=== PATIENT | male | born 1940 | race Caucasian/White ===

== ENCOUNTER → 2017-09-05 | Outpatient (CLI) | payer MEDICARE ==
[~2017-09-05] MED LIST: ALLO300T PO; ASPI-496 PO; AZIT500T5 PO; BUDE10.22 INH; CEFD300C37 PO; CHOL2000 PO; CLOT30CR TP; CYAN100072 PO; CYCL-259 PO; DIGO250T PO; DOXA4TAB3 PO; FENO160T PO; FLAX100013 PO; GUAI200T3 PO; HALO15CR3 TP; HYDR-3237 PO; IPRA3AMP INH; LOSA1TAB22 PO; LOVA20TA2 PO; METF10002 PO; METO50TA82 PO; OMNIPAQUE 350 MG/ML, 150 ML BOTTLE ONE; OXYC-302 PO; PLAN450T PO; PRED10TA PO; TIOT18CA INH; WARF-36 PO; WARF2TAB PO; [UNRECOGNIZED DRUG - CODE] TP
== END | disposition home or self-care (01) ==
LOC: CFH 12:52
PROVIDERS: ATTEND Physician Assistant
DX: N20.0 Calculus of kidney (principal); N28.1 Cyst of kidney, acquired; K80.11 Calculus of gallbladder with chronic cholecystitis with obstruction; I71.4 Abdominal aortic aneurysm, without rupture; I70.0 Atherosclerosis of aorta; J18.9 Pneumonia, unspecified organism; I31.3 Pericardial effusion (noninflammatory); I51.7 Cardiomegaly
CPT/HCPCS: 74178; 82565; Q9967

== ENCOUNTER → 2019-06-18 | Outpatient (CLI) | payer MEDICARE ==
[~2019-06-18] MED LIST changes: +AZIT500T10 PO; -AZIT500T5 PO; -DIGO250T PO; +DIGO250T3 PO; -GUAI200T3 PO; +GUAI200T37 PO; -IPRA3AMP INH; +IPRA3AMP30 INH; -OMNIPAQUE 350 MG/ML, 150 ML BOTTLE ONE; +REGADENOSON 0.4 MG/5 ML SYRINGE ONE
== END | disposition home or self-care (01) ==
LOC: CFH 08:32
PROVIDERS: ATTEND Internal Medicine Cardiovascular Disease
DX: I25.89 Other forms of chronic ischemic heart disease (principal)
CPT/HCPCS: 78452; 93017; A9502; J2785

== ENCOUNTER 2019-10-03 10:36 | Outpatient (CLI) | payer MEDICARE ==
[~2019-10-03 10:36] MED LIST changes: -REGADENOSON 0.4 MG/5 ML SYRINGE ONE
== END 2019-10-03 23:59 | disposition home or self-care (01) ==
LOC: CFH 10:36
PROVIDERS: ATTEND Internal Medicine Cardiovascular Disease
DX: I08.3 Combined rheumatic disorders of mitral, aortic and tricuspid valves (principal); I27.20 Pulmonary hypertension, unspecified; I10 Essential (primary) hypertension; I25.2 Old myocardial infarction; E78.5 Hyperlipidemia, unspecified; I25.10 Atherosclerotic heart disease of native coronary artery without angina pectoris; E11.9 Type 2 diabetes mellitus without complications; Z85.038 Personal history of other malignant neoplasm of large intestine
CPT/HCPCS: 93306

== ENCOUNTER → 2019-12-20 | Outpatient (CLI) | payer MEDICARE | END | disposition home or self-care (01) | LOC: CFH 14:09 | PROVIDERS: ATTEND Internal Medicine Cardiovascular Disease | DX: I08.8 Other rheumatic multiple valve diseases (principal); I25.5 Ischemic cardiomyopathy; I27.20 Pulmonary hypertension, unspecified; E78.5 Hyperlipidemia, unspecified; I25.10 Atherosclerotic heart disease of native coronary artery without angina pectoris; I25.2 Old myocardial infarction; I11.9 Hypertensive heart disease without heart failure | CPT/HCPCS: 93306 ==

== ENCOUNTER 2020-07-02 13:29 | Inpatient (IN) | payer MEDICARE ==
[~2020-07-02] VITALS: Ht 177.8 cm; Wt 104.0 kg
[~2020-07-02 13:29] MED LIST changes: -CYCL-259 PO; +CYCL10TA2 PO; -OXYC-302 PO; +OXYC1TAB14 PO
--- NOTE | 2020-07-02 14:04 | NUR ---
PY C/O BLOODY STOOLS (BLACK,TARRY) THAT HAVE BEEN OCCURRING FOR A FEW WEEKS. PT ALSO HAS CRAMPING IN ALL ABD QUADRANTS. PT DENIES N/V. PT STATES HE IS ALSO BEEN FEELING SOB INTERMITTENTLY FOR A FEW MONTHS AND HAS NOT SEEN A DR FOR IT. PT STATES SOB WORSENS WITH EXERTION.
[2020-07-02] MEDS ORDERED: SODIUM CHLORIDE FLUSH 10ML SYR IVF ONE (14:30)
[2020-07-02] MEDS ORDERED: PANTOPRAZOLE 80 MG in SODIUM CHLORIDE 0.9% 50 ML IVPB ONE (14:30)
[2020-07-02 14:59] LABS: BASOPHILS % (AUTO) 1 % (0-1); EOSINOPHILS % (AUTO) 1 % (1-7); LYMPHOCYTES % (AUTO) 13 % (22-44); MEAN CORPUSCULAR HEMOGLOBIN 28.4 pg (27.5-34.5); MEAN CORPUSCULAR HGB CONC 32.4 g/dL (33.2-36.2); MEAN PLATELET VOLUME 8.8 fL (7.4-10.4); MONOCYTES % (AUTO) 12 % (2-9); NEUTROPHILS % (AUTO) 74 % (42-75); PLATELET COUNT 200 x10^3/uL (130-400); RED BLOOD COUNT 3.84 x10^6/uL (4.38-5.82)
[2020-07-02] MEDS: PANTOPRAZOLE 80 MG in SODIUM CHLORIDE 0.9% 100 ML IV SCH ×2 (15:03→17:37)
[2020-07-02 15:08] LABS: ALBUMIN 3.6 g/dL (3.4-5.0); ANION GAP 9 mmol/L (5-15); CHLORIDE 104 mmol/L (98-107); CREATININE 1.98 mg/dL (0.7-1.3)
[2020-07-02 15:11] LABS: INTERNATIONAL NORMALIZED RATIO 5.18 (0.93-1.1)
[2020-07-02 15:13] LABS: PROTHROMBIN TIME 53.7 Seconds (9.6-11.5)
[2020-07-02 15:15] LABS: MD NO
[2020-07-02] MEDS ORDERED: SODIUM CHLORIDE FLUSH 10ML SYR IVF PRN (16:00)
[2020-07-02] MEDS ORDERED: hydrALAzine 20 MG/ML, 1ML IVPush PRN (17:00)
[2020-07-02] MEDS ORDERED: ALBUTEROL/IPRATROPIUM 2.5MG/0.5MG, 3 ML NEB PRN (17:00)
[2020-07-02] MEDS ORDERED: DOCUSATE 100 MG CAPSULE PO PRN (17:00)
[2020-07-02] MEDS ORDERED: OXYcodone/APAP 5/325MG TABLET PO PRN (17:00)
[2020-07-02] MEDS ORDERED: ENALAPRILAT 1.25 MG/ML, 2ML IVPush PRN (17:00)
[2020-07-02] MEDS ORDERED: DEXTROSE 4 GM TAB.CHEW PO PRN (17:30)
[2020-07-02] MEDS ORDERED: GLUCAGON 1 MG IM PRN (17:30)
[2020-07-02] MEDS ORDERED: DEXTROSE 50%, 50ML SYRINGE IVPush PRN (17:30)
[2020-07-02] MEDS: SODIUM CHLORIDE 0.9% 1,000 ML IV SCH (17:37)
[2020-07-02 17:53] VITALS: BP 149/67
[2020-07-02 18:52] VITALS: BP 133/80
[2020-07-02] MEDS ORDERED: METOPROLOL 1 MG/ML, 5ML IVPush PRN (19:00)
[2020-07-02] MEDS: METOPROLOL TARTRATE 50 MG TAB PO SCH (20:16)
[2020-07-02] MEDS: ACETAMINOPHEN 325 MG TABLET PO PRN (20:16)
[2020-07-02] MEDS: DOXAZOSIN 2MG TABLET PO SCH (20:16)
[2020-07-02] MEDS: CYCLOBENZAPRINE 10 MG TABLET PO SCH (20:16)
[2020-07-02] MEDS: LOVASTATIN 20 MG TABLET PO SCH (20:16)
[2020-07-02] MEDS: SODIUM CHLORIDE FLUSH 10ML SYR IVF SCH (20:17)
[2020-07-02] MEDS: [UNRECOGNIZED DRUG - REMARK] MC SCH (20:17)
[2020-07-02 20:20] VITALS: BP 117/80
[2020-07-02] MEDS ORDERED: TEMPLATE NON-FORMULARY MED. (Metformin Hcl** 1,000 MG) PO SCH (21:00)
[2020-07-02] MEDS: INSULIN LISPRO 100 UNITS/ML, PEN SQ-INSULIN SCH (21:45)
[2020-07-03] VITALS (13 sets, daily range): BP systolic 94–116; BP diastolic 53–74
[2020-07-03] MEDS: [UNRECOGNIZED DRUG - REMARK] MC SCH ×3 (03:42→19:04)
[2020-07-03 05:55] LABS: BASOPHILS % (AUTO) 1 % (0-1); EOSINOPHILS % (AUTO) 1 % (1-7); LYMPHOCYTES % (AUTO) 17 % (22-44); MEAN CORPUSCULAR HEMOGLOBIN 28.9 pg (27.5-34.5); MEAN CORPUSCULAR HGB CONC 33.2 g/dL (33.2-36.2); MEAN PLATELET VOLUME 8.9 fL (7.4-10.4); MONOCYTES % (AUTO) 11 % (2-9); NEUTROPHILS % (AUTO) 69 % (42-75); PLATELET COUNT 174 x10^3/uL (130-400); RED BLOOD COUNT 3.23 x10^6/uL (4.38-5.82); RED CELL DISTRIBUTION WIDTH 16.7 % (9.4-14.8)
[2020-07-03 05:57] LABS: MD NO
[2020-07-03 06:04] LABS: INTERNATIONAL NORMALIZED RATIO 4.36 (0.93-1.1); PROTHROMBIN TIME 45.3 Seconds (9.6-11.5)
[2020-07-03] MEDS: SODIUM CHLORIDE 0.9% 1,000 ML IV SCH (06:06)
[2020-07-03 06:10] LABS: CHLORIDE 106 mmol/L (98-107)
[2020-07-03 06:23] LABS: ALANINE AMINOTRANSFERASE 14 U/L (12-78); ALBUMIN 3.1 g/dL (3.4-5.0); ALKALINE PHOSPHATASE 72 U/L (45-117); ANION GAP 8 mmol/L (5-15); BILIRUBIN,TOTAL 0.6 mg/dL (0.2-1.0); CALCIUM 8.1 mg/dL (8.5-10.1); CREATININE 2.11 mg/dL (0.7-1.3); TOTAL PROTEIN 6.8 g/dL (6.4-8.2)
[2020-07-03] MEDS: INSULIN LISPRO 100 UNITS/ML, PEN SQ-INSULIN SCH ×4 (07:00→19:12)
[2020-07-03] MEDS: HYDROCHLOROTHIAZIDE 25 MG TABLET PO SCH (08:21)
[2020-07-03] MEDS: CYCLOBENZAPRINE 10 MG TABLET PO SCH ×3 (08:22→21:54)
[2020-07-03] MEDS: LOSARTAN 100 MG TAB PO SCH (08:22)
[2020-07-03] MEDS: METOPROLOL TARTRATE 50 MG TAB PO SCH ×2 (08:22→21:54)
[2020-07-03] MEDS: DIGOXIN 0.25 MG TABLET PO SCH (08:22)
[2020-07-03] MEDS: PANTOPRAZOLE 40 MG IV IVPush SCH (08:23)
[2020-07-03] MEDS: SODIUM CHLORIDE FLUSH 10ML SYR IVF SCH ×2 (08:23→21:54)
[2020-07-03] MEDS: FLUTICASONE/VILANTEROL 100-25MCG/INH INH SCH (12:03)
[2020-07-03] MEDS: TIOTROPIUM BROMIDE 18 MCG/INH INH SCH (12:03)
[2020-07-03] MEDS ORDERED: CHLORHEXIDINE 15 ML UDC ONE (14:26)
[2020-07-03] MEDS: LOVASTATIN 20 MG TABLET PO SCH (21:54)
[2020-07-03] MEDS: ACETAMINOPHEN 325 MG TABLET PO PRN (21:54)
[2020-07-03] MEDS: DOXAZOSIN 2MG TABLET PO SCH (21:54)
[2020-07-04] VITALS (9 sets, daily range): BP systolic 75–125; BP diastolic 48–68
[2020-07-04 05:55] LABS: INTERNATIONAL NORMALIZED RATIO 2.25 (0.93-1.1); PROTHROMBIN TIME 23.7 Seconds (9.6-11.5)
[2020-07-04 06:02] LABS: ALBUMIN 2.8 g/dL (3.4-5.0); ANION GAP 9 mmol/L (5-15); CHLORIDE 107 mmol/L (98-107)
[2020-07-04 06:05] LABS: ALANINE AMINOTRANSFERASE 14 U/L (12-78); ALKALINE PHOSPHATASE 69 U/L (45-117); BILIRUBIN,TOTAL 0.6 mg/dL (0.2-1.0); CREATININE 2.44 mg/dL (0.7-1.3); TOTAL PROTEIN 6.2 g/dL (6.4-8.2)
[2020-07-04 06:07] LABS: BASOPHILS % (AUTO) 1 % (0-1); EOSINOPHILS % (AUTO) 2 % (1-7); LYMPHOCYTES % (AUTO) 17 % (22-44); MEAN CORPUSCULAR HGB CONC 32.9 g/dL (33.2-36.2); MEAN PLATELET VOLUME 8.7 fL (7.4-10.4); MONOCYTES % (AUTO) 14 % (2-9); NEUTROPHILS % (AUTO) 67 % (42-75); PLATELET COUNT 156 x10^3/uL (130-400); RED BLOOD COUNT 2.96 x10^6/uL (4.38-5.82); RED CELL DISTRIBUTION WIDTH 16.5 % (9.4-14.8)
[2020-07-04 06:26] LABS: MD NO
[2020-07-04] MEDS: INSULIN LISPRO 100 UNITS/ML, PEN SQ-INSULIN SCH ×4 (07:00→20:34)
[2020-07-04] MEDS: DIGOXIN 0.25 MG TABLET PO SCH (08:33)
[2020-07-04] MEDS: CYCLOBENZAPRINE 10 MG TABLET PO SCH ×3 (08:33→20:32)
[2020-07-04] MEDS: METOPROLOL TARTRATE 50 MG TAB PO SCH ×2 (08:33→20:24)
[2020-07-04] MEDS: ACETAMINOPHEN 325 MG TABLET PO PRN ×2 (08:33→20:22)
[2020-07-04] MEDS: PANTOPRAZOLE 40 MG IV IVPush SCH (08:34)
[2020-07-04] MEDS ORDERED: PROPOFOL 50 ML ONE (09:00)
[2020-07-04] MEDS: TIOTROPIUM BROMIDE 18 MCG/INH INH SCH (10:23)
[2020-07-04] MEDS: FLUTICASONE/VILANTEROL 100-25MCG/INH INH SCH (10:23)
[2020-07-04] MEDS: HYDROCHLOROTHIAZIDE 25 MG TABLET PO SCH (10:24)
[2020-07-04] MEDS: LOSARTAN 100 MG TAB PO SCH (10:24)
[2020-07-04] MEDS: SODIUM CHLORIDE FLUSH 10ML SYR IVF SCH ×2 (10:25→20:34)
[2020-07-04] MEDS: SUCRALFATE 1 GM TABLET PO SCH ×2 (11:54→16:40)
[2020-07-04] MEDS ORDERED: LACTATED RINGERS 500 ML IVBOLUS ONE (14:00)
[2020-07-04] MEDS: LOVASTATIN 20 MG TABLET PO SCH (20:22)
[2020-07-04] MEDS: DOXAZOSIN 2MG TABLET PO SCH (20:33)
[2020-07-05 00:25] VITALS: BP 103/63
[2020-07-05 05:17] LABS: BASOPHILS % (AUTO) 0 % (0-1); EOSINOPHILS % (AUTO) 1 % (1-7); LYMPHOCYTES % (AUTO) 14 % (22-44); MEAN CORPUSCULAR HEMOGLOBIN 28.8 pg (27.5-34.5); MONOCYTES % (AUTO) 13 % (2-9); NEUTROPHILS % (AUTO) 72 % (42-75); PLATELET COUNT 174 x10^3/uL (130-400); RED BLOOD COUNT 3.03 x10^6/uL (4.38-5.82); RED CELL DISTRIBUTION WIDTH 16.6 % (9.4-14.8)
[2020-07-05 05:18] LABS: MD NO
[2020-07-05 05:27] LABS: ALBUMIN 2.9 g/dL (3.4-5.0); ANION GAP 9 mmol/L (5-15); CALCIUM 7.7 mg/dL (8.5-10.1); CHLORIDE 108 mmol/L (98-107)
[2020-07-05 05:28] LABS: INTERNATIONAL NORMALIZED RATIO 1.67 (0.93-1.1); PROTHROMBIN TIME 17.7 Seconds (9.6-11.5)
[2020-07-05 05:44] LABS: ALANINE AMINOTRANSFERASE 15 U/L (12-78); ALKALINE PHOSPHATASE 76 U/L (45-117); BILIRUBIN,TOTAL 0.5 mg/dL (0.2-1.0); TOTAL PROTEIN 6.5 g/dL (6.4-8.2)
[2020-07-05] MEDS: INSULIN LISPRO 100 UNITS/ML, PEN SQ-INSULIN SCH ×4 (07:00→21:14)
[2020-07-05] MEDS: SUCRALFATE 1 GM TABLET PO SCH ×3 (08:00→16:26)
[2020-07-05] MEDS: FLUTICASONE/VILANTEROL 100-25MCG/INH INH SCH (08:44)
[2020-07-05] MEDS: TIOTROPIUM BROMIDE 18 MCG/INH INH SCH (08:44)
[2020-07-05] MEDS: DIGOXIN 0.25 MG TABLET PO SCH (08:45)
[2020-07-05] MEDS: CYCLOBENZAPRINE 10 MG TABLET PO SCH ×3 (08:45→21:13)
[2020-07-05] MEDS: METOPROLOL TARTRATE 50 MG TAB PO SCH ×2 (08:47→21:13)
[2020-07-05] MEDS: OMEPRAZOLE 20 MG CAPSULE.DR PO SCH (08:48)
[2020-07-05] MEDS: SODIUM CHLORIDE FLUSH 10ML SYR IVF SCH ×2 (08:49→21:13)
[2020-07-05 09:56] VITALS: BP 117/64
[2020-07-05] MEDS: ACETAMINOPHEN 325 MG TABLET PO PRN (13:31)
[2020-07-05] MEDS ORDERED: SODIUM CHLORIDE 0.9%, 250ML IVBOLUS ONE (14:00)
[2020-07-05 14:17] VITALS: BP 109/58
[2020-07-05 16:51] LABS: MICROSCOPIC NOT IND
[2020-07-05 17:06] LABS: CHLORIDE,URINE RANDOM 40 mmol/L; POTASSIUM,URINE RANDOM 47 mmol/L; SODIUM,URINE RANDOM 36 mmol/L
[2020-07-05] MEDS ORDERED: WARFARIN 1 MG TABLET PO-COUM ONE (17:39)
[2020-07-05] MEDS ORDERED: WARFARIN 2 MG TABLET PO-COUM SCH (18:00)
[2020-07-05 19:39] VITALS: BP 130/62
[2020-07-05] MEDS: LOVASTATIN 20 MG TABLET PO SCH (21:13)
[2020-07-05] MEDS: DOXAZOSIN 2MG TABLET PO SCH (21:13)
[2020-07-06 01:35] VITALS: BP 120/72
[2020-07-06 06:01] LABS: BASOPHILS % (AUTO) 1 % (0-1); EOSINOPHILS % (AUTO) 1 % (1-7); LYMPHOCYTES % (AUTO) 13 % (22-44); MEAN CORPUSCULAR HEMOGLOBIN 29.2 pg (27.5-34.5); MEAN CORPUSCULAR HGB CONC 33.3 g/dL (33.2-36.2); MEAN PLATELET VOLUME 8.7 fL (7.4-10.4); MONOCYTES % (AUTO) 12 % (2-9); NEUTROPHILS % (AUTO) 74 % (42-75); PLATELET COUNT 173 x10^3/uL (130-400); RED BLOOD COUNT 3.09 x10^6/uL (4.38-5.82); RED CELL DISTRIBUTION WIDTH 16.3 % (9.4-14.8)
[2020-07-06 06:04] LABS: INTERNATIONAL NORMALIZED RATIO 1.35 (0.93-1.1); PROTHROMBIN TIME 14.4 Seconds (9.6-11.5)
[2020-07-06 06:11] LABS: CALCIUM 8.1 mg/dL (8.5-10.1); CHLORIDE 106 mmol/L (98-107)
[2020-07-06 06:17] LABS: ALANINE AMINOTRANSFERASE 17 U/L (12-78); ALBUMIN 3.1 g/dL (3.4-5.0); ALKALINE PHOSPHATASE 83 U/L (45-117); ANION GAP 7 mmol/L (5-15); BILIRUBIN,TOTAL 0.5 mg/dL (0.2-1.0)
[2020-07-06 06:17] LABS: MD NO
[2020-07-06 06:31] VITALS: BP 112/68
[2020-07-06] MEDS: INSULIN LISPRO 100 UNITS/ML, PEN SQ-INSULIN SCH ×2 (07:00→11:00)
[2020-07-06] MEDS: SUCRALFATE 1 GM TABLET PO SCH ×2 (08:00→12:00)
[2020-07-06] MEDS: OMEPRAZOLE 20 MG CAPSULE.DR PO SCH (08:13)
[2020-07-06] MEDS: CYCLOBENZAPRINE 10 MG TABLET PO SCH (08:13)
[2020-07-06] MEDS: METOPROLOL TARTRATE 50 MG TAB PO SCH (08:14)
[2020-07-06] MEDS: DIGOXIN 0.25 MG TABLET PO SCH (08:14)
[2020-07-06] MEDS: ACETAMINOPHEN 325 MG TABLET PO PRN (08:15)
[2020-07-06] MEDS: SODIUM CHLORIDE FLUSH 10ML SYR IVF SCH (08:19)
[2020-07-06] MEDS ORDERED: LOSARTAN 100 MG TAB PO SCH (09:00)
[2020-07-06] MEDS ORDERED: HYDROCHLOROTHIAZIDE 25 MG TABLET PO SCH (09:00)
[2020-07-06] MEDS: FLUTICASONE/VILANTEROL 100-25MCG/INH INH SCH (10:20)
[2020-07-06] MEDS: TIOTROPIUM BROMIDE 18 MCG/INH INH SCH (10:20)
[2020-07-06] MEDS ORDERED: OMEP-110 PO (11:52)
[2020-07-06 11:55] VITALS: BP 102/63
[2020-07-06] MEDS ORDERED: APIXABAN 2.5 MG TABLET PO SCH (11:55)
[2020-07-06] MEDS ORDERED: APIX2.5T PO (12:12)
== END 2020-07-06 14:48 | disposition home health service (06) | DRG 378 ==
LOC: ED 16:10 → EDIP 16:12 → 4EST 17:21
PROVIDERS: ADMIT Family Medicine; ATTEND Family Medicine
PROC: 30233K1 Transfusion of Nonautologous Frozen Plasma into Peripheral Vein, Percutaneous Approach (ICD-10-PCS; principal; 2020-07-03)
PROC: 0DB98ZX Excision of Duodenum, Via Natural or Artificial Opening Endoscopic, Diagnostic (ICD-10-PCS; 2020-07-04)
PROC: 0DB68ZX Excision of Stomach, Via Natural or Artificial Opening Endoscopic, Diagnostic (ICD-10-PCS; 2020-07-04)
DX: K29.91 Gastroduodenitis, unspecified, with bleeding (principal); N17.9 Acute kidney failure, unspecified; I48.20 Chronic atrial fibrillation, unspecified; K29.81 Duodenitis with bleeding; Z20.822 Contact with and (suspected) exposure to COVID-19; D50.0 Iron deficiency anemia secondary to blood loss (chronic); E11.9 Type 2 diabetes mellitus without complications; Z66 Do not resuscitate; E78.00 Pure hypercholesterolemia, unspecified; E86.9 Volume depletion, unspecified; F02.80 Dementia in other diseases classified elsewhere, unspecified severity, without behavioral disturbance, psychotic disturbance, mood disturbance, and anxiety; G20 Parkinson's disease; I11.0 Hypertensive heart disease with heart failure; I25.10 Atherosclerotic heart disease of native coronary artery without angina pectoris; I50.9 Heart failure, unspecified; J44.9 Chronic obstructive pulmonary disease, unspecified; G47.30 Sleep apnea, unspecified; M10.9 Gout, unspecified; N40.0 Benign prostatic hyperplasia without lower urinary tract symptoms; T45.515A Adverse effect of anticoagulants, initial encounter; I25.2 Old myocardial infarction; Z79.01 Long term (current) use of anticoagulants; Z79.82 Long term (current) use of aspirin; Z79.899 Other long term (current) drug therapy; Z85.038 Personal history of other malignant neoplasm of large intestine; Z87.19 Personal history of other diseases of the digestive system; Z87.891 Personal history of nicotine dependence; Z90.49 Acquired absence of other specified parts of digestive tract; Z95.5 Presence of coronary angioplasty implant and graft; Z88.1 Allergy status to other antibiotic agents; Z88.8 Allergy status to other drugs, medicaments and biological substances; Y92.89 Other specified places as the place of occurrence of the external cause
CPT/HCPCS: 36415; 76770; 80048; 80053; 80162; 81003; 82040; 82436; 82962; 83735; 84133; 84300; 85014; 85018; 85025; 85610; 85730; 86850; 86900; 87635; 88305; 93005; 94640; 96374; 99285; G0378; J2704; J7120; C9113; J1815; J7030; J7050; P9017

== ENCOUNTER 2020-07-23 09:52 | Observation (INO) | payer MEDICARE ==
[~2020-07-23] VITALS: Ht 177.8 cm; Wt 108.3 kg
[~2020-07-23 09:52] MED LIST changes: +APIX2.5T PO; +OMEP-110 PO
--- NOTE | 2020-07-23 10:10 | NUR ---
THIS IS A 80 YR OLD MALE BIB EMS FROM HOME FOR SOB X A FEW WEEKS. PT HAS RECENT DX OF CHF WHILE AT THIS FACILITY FOR GI ADMIT. 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 PER PT LAST NIGHT DIFFICULTY LAYING FLAT IN BED AND ENDED UP SLEEPING IN A RECLINER. FAMILY ON SCENE STATED HE HAS SUBJECTIVE SOB WITH NORMAL VITALS AND THINKS IT MAY BE JUST ANXIETY. PT PLACED ON CARDIAC, NIBP, AND O2 MONITORING. AT TIME OF ASSESSMENT PT STATES HE FEELS BETTER NOW THAT HE IS HERE. CALL LIGHT IN REACH AND PT ENCOURAGED TO CALL.
[2020-07-23] MEDS ORDERED: SODIUM CHLORIDE FLUSH 10ML SYR IVF ONE (10:30)
[2020-07-23 10:45] LABS: BASOPHILS % (AUTO) 1 % (0-1); EOSINOPHILS % (AUTO) 2 % (1-7); LYMPHOCYTES % (AUTO) 20 % (22-44); MEAN CORPUSCULAR HGB CONC 31.6 g/dL (33.2-36.2); MEAN PLATELET VOLUME 8.6 fL (7.4-10.4); MONOCYTES % (AUTO) 11 % (2-9); NEUTROPHILS % (AUTO) 67 % (42-75); PLATELET COUNT 230 x10^3/uL (130-400); RED BLOOD COUNT 3.58 x10^6/uL (4.38-5.82); RED CELL DISTRIBUTION WIDTH 16.7 % (9.4-14.8)
[2020-07-23 10:48] LABS: ALANINE AMINOTRANSFERASE 15 U/L (12-78); ALBUMIN 3.5 g/dL (3.4-5.0); ANION GAP 4 mmol/L (5-15); CALCIUM 8.9 mg/dL (8.5-10.1); CHLORIDE 110 mmol/L (98-107); CREATININE 1.58 mg/dL (0.7-1.3); MD NO
[2020-07-23 10:52] LABS: INTERNATIONAL NORMALIZED RATIO 1.14 (0.93-1.1); PROTHROMBIN TIME 12.2 Seconds (9.6-11.5)
[2020-07-23 10:53] LABS: ALKALINE PHOSPHATASE 91 U/L (45-117); BILIRUBIN,TOTAL 0.6 mg/dL (0.2-1.0); TOTAL PROTEIN 7.5 g/dL (6.4-8.2); TROPONIN I 0.038 ng/mL (0.000-0.045)
[2020-07-23] MEDS ORDERED: FUROSEMIDE 20 MG/2 ML IV ONE (11:30)
[2020-07-23] MEDS ORDERED: FUROSEMIDE 20 MG/2 ML ONE (11:31)
--- NOTE | 2020-07-23 13:44 | NUR ---
PHONE REPORT TO HARSHA JACKSON
[2020-07-23 14:28] VITALS: BP 144/64
[2020-07-23] MEDS ORDERED: ALBUTEROL/IPRATROPIUM 2.5MG/0.5MG, 3 ML NPPB PRN (14:58)
[2020-07-23] MEDS ORDERED: ENALAPRILAT 1.25 MG/ML, 1ML IVPush PRN (15:00)
[2020-07-23] MEDS ORDERED: DOCUSATE 100 MG CAPSULE PO PRN (15:00)
[2020-07-23] MEDS ORDERED: DEXTROSE 4 GM TAB.CHEW PO PRN (15:00)
[2020-07-23] MEDS ORDERED: ONDANSETRON ODT 4 MG PO PRN (15:00)
[2020-07-23] MEDS ORDERED: POLYETHYLENE GLYCOL 17 GM PACKET PO PRN (15:00)
[2020-07-23] MEDS ORDERED: hydrALAzine 20 MG/ML, 1ML IVPush PRN (15:00)
[2020-07-23] MEDS ORDERED: DEXTROSE 50%, 50ML SYRINGE IVPush PRN (15:00)
[2020-07-23] MEDS ORDERED: ACETAMINOPHEN 325 MG TABLET PO PRN (15:00)
[2020-07-23] MEDS ORDERED: GLUCAGON 1 MG IM PRN (15:00)
[2020-07-23 16:07] VITALS: BP 144/64
[2020-07-23] MEDS ORDERED: ALBUTEROL-IPRATROPIUM MDI INH INH PRN (16:30)
[2020-07-23 19:25] VITALS: BP 136/70
[2020-07-23] MEDS ORDERED: FUROSEMIDE 20 MG/2 ML IV SCH (21:00)
[2020-07-23] MEDS: APIXABAN 2.5 MG TABLET PO SCH (21:27)
[2020-07-23] MEDS: SODIUM CHLORIDE FLUSH 10ML SYR IVF SCH (21:27)
[2020-07-24 00:56] VITALS: BP 138/73
[2020-07-24 05:14] LABS: ANION GAP 7 mmol/L (5-15); CALCIUM 9.1 mg/dL (8.5-10.1); CHLORIDE 106 mmol/L (98-107)
[2020-07-24 05:16] LABS: CREATININE 1.74 mg/dL (0.7-1.3)
[2020-07-24 05:22] LABS: BASOPHILS % (AUTO) 1 % (0-1); EOSINOPHILS % (AUTO) 2 % (1-7); LYMPHOCYTES % (AUTO) 24 % (22-44); MEAN CORPUSCULAR HGB CONC 32.1 g/dL (33.2-36.2); MEAN PLATELET VOLUME 8.6 fL (7.4-10.4); MONOCYTES % (AUTO) 13 % (2-9); NEUTROPHILS % (AUTO) 61 % (42-75); PLATELET COUNT 226 x10^3/uL (130-400); RED BLOOD COUNT 3.55 x10^6/uL (4.38-5.82); RED CELL DISTRIBUTION WIDTH 16.5 % (9.4-14.8)
[2020-07-24 05:25] LABS: MD NO
[2020-07-24 07:30] VITALS: BP 137/77
[2020-07-24] MEDS: APIXABAN 2.5 MG TABLET PO SCH (08:59)
[2020-07-24] MEDS: SODIUM CHLORIDE FLUSH 10ML SYR IVF SCH (08:59)
[2020-07-24] MEDS ORDERED: FLUTICASONE/VILANTEROL 100-25MCG/INH INH SCH (09:00)
[2020-07-24] MEDS ORDERED: TIOTROPIUM BROMIDE 18 MCG/INH INH SCH ×2 (09:00)
[2020-07-24] MEDS ORDERED: FUROSEMIDE 20 MG/2 ML IV SCH (09:00)
[2020-07-24] MEDS ORDERED: DIGOXIN 0.25 MG TABLET PO SCH (09:00)
[2020-07-24] MEDS ORDERED: ASPIRIN 81 MG TABLET EC PO SCH (09:00)
[2020-07-24] MEDS ORDERED: METOPROLOL TARTRATE 50 MG TAB PO ONE (13:00)
[2020-07-24] MEDS ORDERED: FURO-93 PO (13:24)
[2020-07-24 13:30] VITALS: BP 123/73
[2020-07-24] MEDS ORDERED: METOPROLOL TARTRATE 50 MG TAB PO SCH (21:00)
[2020-07-24] MEDS ORDERED: DOXAZOSIN 2MG TABLET PO SCH (21:00)
[2020-07-24] MEDS ORDERED: LOVASTATIN 20 MG TABLET PO SCH (21:00)
[2020-07-25] MEDS ORDERED: OMEPRAZOLE 20 MG CAPSULE.DR PO SCH (07:30)
[2020-07-25] MEDS ORDERED: FENOFIBRATE 145 MG TABLET PO SCH (09:00)
== END 2020-07-24 15:15 | disposition home or self-care (01) ==
LOC: ED 10:20 → EDIP 12:53 → INTOOBSV 12:53 → SUATTDRO 12:54 → 5SO 14:04 → DCLOUNGE 07-24 15:10
PROVIDERS: ADMIT Hospitalist; ATTEND Hospitalist
DX: I11.0 Hypertensive heart disease with heart failure (principal); I50.43 Acute on chronic combined systolic (congestive) and diastolic (congestive) heart failure; I25.10 Atherosclerotic heart disease of native coronary artery without angina pectoris; I48.91 Unspecified atrial fibrillation; J43.9 Emphysema, unspecified; E11.9 Type 2 diabetes mellitus without complications; G30.1 Alzheimer's disease with late onset; F02.80 Dementia in other diseases classified elsewhere, unspecified severity, without behavioral disturbance, psychotic disturbance, mood disturbance, and anxiety; I21.9 Acute myocardial infarction, unspecified; Z79.82 Long term (current) use of aspirin; Z79.899 Other long term (current) drug therapy; Z87.891 Personal history of nicotine dependence; Z90.49 Acquired absence of other specified parts of digestive tract; Z66 Do not resuscitate; Z79.01 Long term (current) use of anticoagulants; Z85.038 Personal history of other malignant neoplasm of large intestine; Z95.5 Presence of coronary angioplasty implant and graft
CPT/HCPCS: 36415; 71045; 80048; 80053; 80162; 83735; 83880; 84484; 85025; 85379; 85610; 93005; 94640; 96374; 96376; 99285; G0378; J1940

== ENCOUNTER → 2020-10-19 | Outpatient (CLI) | payer MEDICARE ==
[~2020-10-19] MED LIST changes: +FURO-93 PO; -PLAN450T PO; +PLAN450T2 PO
== END | disposition home or self-care (01) ==
LOC: CFH 10:27
PROVIDERS: ATTEND Internal Medicine Cardiovascular Disease
DX: I08.3 Combined rheumatic disorders of mitral, aortic and tricuspid valves (principal); I25.10 Atherosclerotic heart disease of native coronary artery without angina pectoris; I25.2 Old myocardial infarction; E78.5 Hyperlipidemia, unspecified; I11.9 Hypertensive heart disease without heart failure; I48.91 Unspecified atrial fibrillation
CPT/HCPCS: 93306